=== PATIENT | male | born 1995 | race Caucasian/White ===

== ENCOUNTER 2020-07-20 11:21 | Emergency (ER) | payer BC, SELFPAY ==
[2020-07-20 11:28] VITALS: BP 122/71; PULSE 64; RESP 16; TEMP 36.7; O2SAT 99
--- NOTE | 2020-07-20 11:33 | ED.GENADULT ---
HPI - General Adult General Chief complaint: Ear Stated complaint: lump behind lt ear Time Seen by Provider: 07/20/20 11:33 Source: patient and RN notes reviewed Mode of arrival: ambulatory Limitations: no limitations History of Present Illness HPI narrative: 24-year-old male presents concern for a red, painful lump on the back of his left earlobe. He denies any recent ear piercings, injury. Denies any drainage from the area. Denies any decreased hearing, no ear pain. Denies fever, malaise, chills, sweats. MD complaint: Abscess Related Data Allergies Allergy/AdvReac Type Severity Reaction Status Date / Time No Known Allergies Allergy Verified 07/20/20 11:35 Review of Systems Review of Systems: Narrative: CONSTITUTIONAL: Denies malaise, chills, sweats, or fever. ENT: Denies otalgia CARDIOVASCULAR: Denies chest pain, palpitations RESPIRATORY: Denies cough or dyspnea. SKIN: Red swollen painful lump behind the left ear lobe, reports pain beginning to radiate below the ear MUSCULOSKELETAL: Denies myalgia. NEUROLOGIC: Denies headache. All systems reviewed & are unremarkable except as noted in HPI and below PMFSH Social History Social History Smoking status: Never smoker Second hand tobacco smoke exposure: No Alcohol intake: never Comments At time of signature, agree with nursing past medical, surgical, social and family history. There is no relevant family history pertinent to the presenting complaint Exam Narrative: Exam Narrative: GENERAL: Well-appearing, well-nourished, and in no acute distress. HEAD: Normocephalic, atraumatic EYES: PERRLA, conjunctivae clear. ENT: Nares clear. Mucous membranes moist. TM pearly barreto with sharp light reflex bilaterally; no tragal tenderness. NECK: Supple. No lymphadenopathy. No jugular venous distension, thyromegaly, or carotid bruits. Carotids were easily palpable bilaterally. CHEST: No respiratory distress. Speaks in full sentences. HEART: Regular rate and rhythm SKIN: Warm, dry, no rash. 1.5 cm diameter abscess noted to the posterior left earlobe, fluctuant, no surrounding erythema, edema, induration NEURO: Alert and oriented x3. PSYCH: Normal mood and affect Course Course Emergency Course: Patient is aware of diagnosis, understands and agrees to treatment plan. Anticipatory guidance given. Patient agrees to follow-up as directed and is aware of reasons to seek care at the emergency department. Portions of this record may have been created with voice recognition software Vital Signs Vital signs: Vital Signs Temperature 98.1 F 07/20/20 11:28 Pulse Rate 64 07/20/20 11:28 Respiratory Rate 16 07/20/20 11:28 Blood Pressure 122/71 07/20/20 11:28 Pulse Oximetry 99 07/20/20 11:28 Temperature 98.1 F 07/20/20 11:28 Pulse Rate 64 07/20/20 11:28 Respiratory Rate 16 07/20/20 11:28 Blood Pressure 122/71 07/20/20 11:28 Pulse Oximetry 99 07/20/20 11:28 Reviewed. Procedures Abscess I/D other: Date of Incision: 07/20/20 Time of Incision: 11:40 Side (if applicable): left Technique: needle aspiration Amount of fluid expressed (mL): 1 Irrigation: No Packing used?: none I&D Results: Pus and Blood Medical Decision Making MDM Narrative Medical decision making narrative: Verbal consent were obtained. The indication for the procedure was clinical suspicion for an abscess. Yes/No confirmation with an ultrasound was performed. The region was anesthetized with local anesthetic. The most fluctuant portion of the abscess was incised pierced with an 18-gauge needle. Approximately 1 mL of pus expressed from abscess. I was present for this entire procedure and there were no complications Vital Signs Vital Signs: Vital Signs Temperature 98.1 F 07/20/20 11:28 Pulse Rate 64 07/20/20 11:28 Respiratory Rate 16 07/20/20 11:28 Blood Pressure 122/71 07/20/20 11:28 Pulse Oximetry 99
== END 2020-07-20 11:51 | disposition home or self-care (01) ==
PROVIDERS: Emergency Provider Nurse Practitioner
DX: H60.02 Abscess of left external ear (principal); Z86.718 Personal history of other venous thrombosis and embolism
CPT/HCPCS: 69000; 99213; G0463

== ENCOUNTER 2021-03-07 11:28 | Emergency (ER) | payer BC, SELFPAY ==
[2021-03-07 11:37] VITALS: BP 125/65; PULSE 69; RESP 16; TEMP 36.6; O2SAT 100
--- NOTE | 2021-03-07 12:31 | ED.SKABFB ---
HPI - Skin/Abscess/Foreign Bdy General Chief complaint: Skin/Abscess/Foreign Body Stated complaint: neck pain/swelling S/P abscess on ear Source: patient and RN notes reviewed Mode of arrival: ambulatory History of Present Illness HPI narrative: This is a 25-year-old male that presented to urgent care with complaints of left eye jaw swelling and redness and swelling to his right eye according to patient he came to our facility in July to get the abscess drain to the site that he is complaining about today. Patient notes that he was given antibiotics which relieved the swelling and redness. He notes that recently the swelling be appear. He did go to his dentist to see if it was due to an abscessed tooth. He was informed by the dentist it was not. He has made an appointment with his primary care physician for March 20. Patient is also complains of pain to that site. Patient will be given another 7 days of Bactrim small amount of pain medication and erythromycin ointment for his eye right eye swelling. The patient denies SOB, CP, palpitation, extremity numbness, lightheadedness, dizziness, constipation, diarrhea, chills, or fever. Patient notes that occasionally he feels like there is a haze over his right eye. No visual disturbance noted Related Data Allergies Allergy/AdvReac Type Severity Reaction Status Date / Time No Known Allergies Allergy Verified 07/20/20 11:35 Review of Systems Review of Systems: A 14 organ system Review of Systems was performed and pertinent positives included in the HPI, otherwise remaining ROS is negative. PMFSH Social History Social History Smoking status: Never smoker Second hand tobacco smoke exposure: No Alcohol intake: never Exam Narrative: GENERAL: This is a well-nourished, well-developed patient, in no apparent distress. HEAD: normocephalic, atraumatic. EYES: PERRL. Sclera clear/white. Vision is grossly intact. Right eye with edema and erythematous to the upper and lower eyelid. EARS: External ears normal, auditory canals clear and without drainage, TMs normal without perforation. Hearing grossly intact. NOSE: External nose normal with no obvious nasal discharge, nares without redness, no rhinorrhea. THROAT: Mucous membranes moist, posterior pharynx clear. Small swollen lymph node to the left right beneath the jawbone NECK: Neck supple, non-tender without lymphadenopathy, masses or thyromegaly. CARDIOVASCULAR: Regular rate and rhythm without murmurs, gallops, or rubs. RESPIRATORY: Clear to auscultation. Breath sounds equal bilaterally. No wheezes, rales, or rhonchi. GASTROINTESTINAL: Abdomen soft, non-tender, nondistended. Bowel sounds are active. No hepato-splenomegaly, or palpable masses. No guarding. SKIN: warm, intact with no suspicious lesions or rash, good texture and turgor. NEURO: awake, alert, and oriented to person, place and time. There were no obvious focal neurologic abnormalities. Steady gait EXTREMITIES: Normal range of motion. No edema. No calf tenderness. Negative Homans sign bilaterally. BACK: Nontender without deformity or crepitance. No flank tenderness. Course Course Emergency Course: Patient will be given another dose of Bactrim and erythromycin ointment for his right eye Vital Signs Vital signs: Vital Signs Temperature 98 F 03/07/21 11:37 Pulse Rate 69 03/07/21 11:37 Respiratory Rate 16 03/07/21 11:37 Blood Pressure 125/65 03/07/21 11:37 Pulse Oximetry 100 03/07/21 11:37 Temperature 98 F 03/07/21 11:37 Pulse Rate 69 03/07/21 11:37 Respiratory Rate 16 03/07/21 11:37 Blood Pressure 125/65 03/07/21 11:37 Pulse Oximetry 100 03/07/21 11:37 MDM - Skin/Abscess/Foreign Bdy Differential Diagnosis Differential diagnosis: Likely abscess of skin or subcutaneous tissue, cellulitis, contact dermatitis and other (Conjunctivitis) Discharge Plan Discharge Clinical Impression: Abscess of skin or subcutaneous tissue Qualifi
== END 2021-03-07 12:35 | disposition home or self-care (01) ==
PROVIDERS: Emergency Provider Nurse Practitioner; PCP Internal Medicine
DX: L02.818 Cutaneous abscess of other sites (principal); H10.31 Unspecified acute conjunctivitis, right eye
CPT/HCPCS: 99213; G0463

== ENCOUNTER 2021-03-27 08:34 | Outpatient (CLI) | payer BC, SELFPAY ==
--- NOTE | ~2021-03-27 | XR_ITS ---
XR shoulder LT min 2V 03/27/2021 09:38 Indication: Left shoulder pain Procedure: 4 views left shoulder Comparison: No prior studies for comparison. Findings: There is anatomic alignment. No fracture, subluxation or dislocation. The glenohumeral and acromioclavicular joints are intact. Surrounding osseous structures and soft tissues are unremarkable . No joint space narrowing. Impression: 1: No significant bone or joint abnormality. Reviewed, dictated and finalized at location A. Impression: 1: No significant bone or joint abnormality.
[2021-03-27 09:19] LABS: Basophils Absolute Auto 0.1 K/mm3 (0.0-0.1); Basophils Percent Auto 0.7 % (0.2-1.2); Eosinophils Absolute Auto 0.3 K/mm3 (0-0.3); Eosinophils Percent Auto 2.3 % (0-4.4); Hematocrit 40.2 % (42.0-52.0); Hemoglobin 13.5 g/dL (14.0-18.0); Immature Granulocyte Absolute 0.04 K/mm3 (0.00-0.031); Immature Granulocyte Percent A 0.3 % (0-0.5); Lymphocytes Absolute Auto 2.05 K/mm3 (0.9-3.2); Lymphocytes Percent Auto 16.7 % (18.3-44.2); Mean Corpuscular HGB Conc 33.6 g/dl (32-36); Mean Corpuscular Hemoglobin 32.8 pg (26-34); Mean Corpuscular Volume 97.6 fl (80-100); Mean Platelet Volume 11.9 fl (7.4-10.4); Monocytes Absolute Auto 0.8 K/mm3 (0.1-0.6); Monocytes Percent Auto 6.3 % (2.6-8.5); Neutrophils Percent Auto 73.7 % (45.5-73.1); Platelet Count Result 206 k/mm3 (150-375); Red Blood Count 4.12 M/mm3 (4.6-6.20); White Blood Count 12.3 K/mm3 (4.5-10.0)
[2021-03-27 09:31] LABS: Alanine Aminotransferase 21 U/L (4-50); Albumin Level 4.6 g/dL (3.5-5.1); Alkaline Phosphatase 66 U/L (38-126); Anion Gap 5 mmol/L (8-16); Aspartate Amino Transferase 27 U/L (17-59); Bilirubin,Total 0.3 mg/dL (0.2-1.3); Blood Urea Nitrogen 12 mg/dL (9-20); Calcium 9.4 mg/dL (8.4-10.2); Carbon Dioxide 31 mmol/L (22-30); Chloride 104 mmol/L (98-107); Cholesterol 113 mg/dL (0-200); Estimated Glomerular Filt Rate > 60; Glucose 96 mg/dL (65-110); HDL Direct 41 mg/dL; Potassium 4.3 mmol/L (3.4-5.0); Sodium 140 mmol/L (137-145); Triglycerides 71 mg/dL (<150)
[2021-03-27 09:34] LABS: Hemoglobin A1C 5.3 % (<5.7)
[2021-03-27 09:44] LABS: LDL Cholesterol Direct 54 mg/dL
== END 2021-03-27 08:35 | disposition home or self-care (01) ==
PROVIDERS: PCP Internal Medicine; Visit Provider Nurse Practitioner
DX: Z13.220 Encounter for screening for lipoid disorders (principal); M25.512 Pain in left shoulder; Z13.1 Encounter for screening for diabetes mellitus; Z86.718 Personal history of other venous thrombosis and embolism
CPT/HCPCS: 36415; 73030; 80053; 80061; 83036; 84443; 85025

== ENCOUNTER 2023-01-30 20:40 | Emergency (ER) | payer BC, SELFPAY ==
--- NOTE | ~2023-01-30 | CT_ITS ---
Clinical Indication: Chest pain, back pain CT Scan of the Chest, Abdomen, and Pelvis with Contrast: Technique: Contiguous sections were acquired throughout the chest, abdomen, and pelvis after intraven ous administration of 100 cc of Omnipaque 350. Dose reduction technique was used on this scan by cleo lebron automated exposure control and iterative reconstruction technique. The dose-length product (DL P) was 1046.30 mGy-cm. COMPARISON: 01/30/2017 Findings: There is no evidence of any significant mediastinal, hilar or axillary lymphadenopathy. The mediastin al soft tissues appear normal. No pulmonary embolus. No aortic aneurysm or dissection. There is no evidence of pleural or pericardial effusion. The lungs are clear. No pulmonary nodules or infiltrates are noted. The liver, spleen, pancreas, gallbladder, adrenals and kidneys are within normal limits. No evidence of aortic aneurysm. No lymphadenopathy. Normal IVC is not present. There are extensive venous colla terals or dilated/tortuous persistent left IVC in the pelvis and left midabdomen. No bowel obstruction or bowel wall thickening. There is no evidence to suggest acute appendicitis. Urinary bladder is unremarkable. Prostate gland and seminal vesicles are unremarkable. No ascites. Impression: No acute abnormality seen. 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 Reviewed, dictated and finalized at [facility]. Impression: No acute abnormality seen. Extensive dilated, tortuous venous collaterals and/or persistent left IVC in th e pelvis and left midabdomen. 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
--- NOTE | ~2023-01-30 | XR_ITS ---
XR lumbar spine 2-3V 01/30/2023 22:51 Indication: Low back pain Procedure: 3 views lumbar spine Comparison: No prior studies for comparison. Findings: Vertebral body heights are maintained. No fracture, subluxation or dislocation. No spondylo listhesis. Pedicles intact. Sacral foramen are symmetric. Impression: 1: No acute abnormality of the lumbar spine. Reviewed, dictated and finalized at location A. Impression: 1: No acute abnormality of the lumbar spine.
[2023-01-30 20:44] VITALS: BP 140/82; PULSE 71; RESP 15; TEMP 36.8; O2SAT 100
[2023-01-30 23:45] VITALS: BP 138/87; PULSE 68; RESP 21; O2SAT 100
[2023-01-31] VITALS (11 sets, daily range): BP systolic 116–147; BP diastolic 68–87; PULSE 48–67; RESP 15–27; O2SAT 98–100
--- NOTE | 2023-01-31 00:06 | ED.BACK ---
HPI - Back Pain/Injury General Chief Complaint: Back Pain/Injury <ANA M Hernandez Last Filed: 02/01/23 03:02> Stated Complaint: back pain <ANA M Hernandez Last Filed: 02/01/23 03:02> Time Seen by Provider: 01/30/23 23:38 <ANA M Hernandez Last Filed: 02/01/23 03:02> Source: patient <ANA M Hernandez Last Filed: 02/01/23 03:02> Mode of arrival: ambulatory <ANA M Hernandez Last Filed: 02/01/23 03:02> Limitations: no limitations <ANA M Hernandez Last Filed: 02/01/23 03:02> History of Present Illness HPI Narrative: This is a 27 year old male that presents to the ER for low back pain. Ongoing over the last couple of weeks. Reports history of blood clots. He stopped taking his anticoagulation years ago because it was making him not feel well. He reports he had clots in his pelvis and in his right leg. He has noticed over the last couple of days that his right leg appears swollen. He also reports he has been having dizzy spells. Reports some right-sided posterior chest pain. Denies fever, shortness of breath, abdominal pain, vomiting, dysuria, hematuria, or erythema of the leg. <ANA M Hernandez Last Filed: 02/01/23 03:02> Related Data Allergies/Adverse Reactions: Allergies Allergy/AdvReac Type Severity Reaction Status Date / Time No Known Allergies Allergy Verified 03/20/21 09:26 <ANA M Hernandez Last Filed: 02/01/23 03:02> Review of Systems Review of Systems: CONSTITUTIONAL: Denies fever CARDIOVASCULAR: Reports chest pain and edema. RESPIRATORY: Denies dyspnea. GASTROINTESTINAL: Denies abdominal pain, nausea, vomiting GENITOURINARY: Denies dysuria or hematuria. MUSCULOSKELETAL: Reports back pain NEUROLOGIC: Denies numbness <ANA M Hernandez Last Filed: 02/01/23 03:02> All systems reviewed & are unremarkable except as noted in HPI and below <Maite Harden PA-C - Last Filed: 02/01/23 03:02> PMFSH Past Medical History Medical History: Medical History Hx of deep venous thrombosis <Maite Harden PA-C - Last Filed: 02/01/23 03:02> Family History Family History: Family History Mother Diabetes mellitus Grandparent Skin cancer <Maite Harden PA-C - Last Filed: 02/01/23 03:02> Social History Social History: Social History (Updated 03/20/21 @ 09:28 by ERIC Nichols) Smoking packs per day: 1 Smoking cigarettes per day: 20.0 Smoking status: Current every day smoker Second hand tobacco smoke exposure: No Alcohol intake: never Substance use: current Substance use type: marijuana Living arrangements: with family Occupation/Education: occupation Gender identity (if verbalized by the patient): Male <Maite Harden PA-C - Last Filed: 02/01/23 03:02> Exam Narrative: GENERAL: Well-appearing, well-nourished, and in no acute distress. HEAD: Normocephalic, atraumatic. EYES: EOMI. CHEST: Clear to auscultation. No respiratory distress. No wheezes rales or rhonchi HEART: Regular rate and rhythm. No murmur heard. Normal peripheral pulses. ABDOMEN: Soft, nontender, nondistended, normal active bowel sounds. No CVA tenderness EXTREMITIES: Normal range of motion. Right leg is mildly swollen compared to the left. Normal DP pulses SKIN: Warm, dry, no rash. NEURO: No focal deficits. Alert and oriented x3. PSYCH: Normal mood and affect <Maite Harden PA-C - Last Filed: 02/01/23 03:02> Course Course Emergency Course: Patient updated on workup thus far. Care taken over by Dr. Couch at shift change <Maite Harden PA-C - Last Filed: 02/01/23 03:02> DETENTION WORKER/PA Physician Supervision This visit was performed by both the physician and an APC. I performed all aspects of the MDM as documented <Keenan Couch MD - Last Filed: 0
[2023-01-31 01:13] LABS: Basophils Absolute Auto 0.1 K/mm3 (0.0-0.1); Basophils Percent Auto 0.6 % (0.2-1.2); Eosinophils Absolute Auto 0.3 K/mm3 (0-0.3); Eosinophils Percent Auto 2.8 % (0-4.4); Hematocrit 37.4 % (42.0-52.0); Hemoglobin 12.7 g/dL (14.0-18.0); Immature Granulocyte Absolute 0.03 K/mm3 (0.00-0.031); Immature Granulocyte Percent A 0.3 % (0-0.5); Lymphocytes Absolute Auto 3.02 K/mm3 (0.9-3.2); Lymphocytes Percent Auto 25.5 % (18.3-44.2); Mean Corpuscular Hemoglobin 32.2 pg (26-34); Mean Corpuscular Volume 94.9 fl (80-100); Mean Platelet Volume 10.9 fl (7.4-10.4); Monocytes Absolute Auto 0.9 K/mm3 (0.1-0.6); Monocytes Percent Auto 7.9 % (2.6-8.5); Neutrophils Absolute Auto 7.4 K/mm3 (1.3-6.7); Neutrophils Percent Auto 62.9 % (45.5-73.1); Platelet Count Result 247 k/mm3 (150-375); Red Blood Count 3.94 M/mm3 (4.6-6.20); Red Cell Distribution Width 11.9 % (11.5-14.5); White Blood Count 11.8 K/mm3 (4.5-10.0)
[2023-01-31 01:25] LABS: Alanine Aminotransferase 23 U/L (6-50); Albumin Level 4.3 g/dL (3.5-5.1); Alkaline Phosphatase 66 U/L (38-126); Anion Gap 10 mmol/L (8-16); Aspartate Amino Transferase 30 U/L (17-59); Bilirubin,Total 0.5 mg/dL (0.2-1.3); Blood Urea Nitrogen 11 mg/dL (9-20); Calcium 8.7 mg/dL (8.4-10.2); Carbon Dioxide 26 mmol/L (22-30); Chloride 100 mmol/L (98-107); Creatine Kinase 115 U/L (55-170); Estimated CRCL calculation 108 ml/min; Estimated Glomerular Filt Rate > 60; Glucose 101 mg/dL (65-110); Potassium 3.5 mmol/L (3.4-5.0); Sodium 136 mmol/L (137-145)
[2023-01-31 01:33] LABS: Prothrombin Time 13.8 Seconds (11.1-14.7)
[2023-01-31 01:36] LABS: Troponin I < 0.012 ng/mL (0.000-0.034)
[2023-01-31 01:42] LABS: D Dimer 0.27 ug/mL (<0.48)
[2023-01-31] MEDS: ACETAMINOPHEN 500 MG TABLET 1000 MG PO (04:26)
[2023-01-31] MEDS: ENOXAPARIN 80 MG/0.8 ML SYRINGE 70 MG SUB-Q (06:08)
== END 2023-01-31 06:19 | disposition home or self-care (01) ==
PROVIDERS: Physician Assistant; Emergency Provider Emergency Medicine
DX: M54.50 Low back pain, unspecified (principal); R60.0 Localized edema; F17.210 Nicotine dependence, cigarettes, uncomplicated; Z86.718 Personal history of other venous thrombosis and embolism; T45.516A Underdosing of anticoagulants, initial encounter; Z91.A28 Caregiver's intentional underdosing of medication regimen for other reason
CPT/HCPCS: 36415; 71275; 72100; 74177; 80053; 82550; 84484; 85025; 85380; 85610; 85730; 93971; 96372; 99284; A9270; J1650; Q9967

== ENCOUNTER 2023-01-31 07:08 | Outpatient (CLI) | payer BC, SELFPAY ==
--- NOTE | ~2023-01-31 | US_ITS ---
Duplex Sonography of the right extremity: Indication: Pain and swelling Findings: Sagittal and transverse B-mode images as well as color-flow imaging were performed on the r ight femoral and popliteal veins. B-mode examination was done without and with compression in the tr ansverse plane. There is good visualization of the common femoral, proximal profunda femoral, superf icial femoral, greater saphenous, and popliteal veins. Normal flow was seen on color-flow imaging. N ormal compressibility was demonstrated. Visualized calf veins are also patent. Impression: No evidence of deep vein thrombosis involving the right lower extremity. Reviewed, dictated and finalized at location . Impression: No evidence of deep vein thrombosis involving the right lower extremity.
== END 2023-01-31 07:09 | disposition home or self-care (01) ==
PROVIDERS: PCP Family Medicine; Visit Provider Family Medicine
DX: M79.604 Pain in right leg (principal); M54.50 Low back pain, unspecified; M79.89 Other specified soft tissue disorders
CPT/HCPCS: 93971